=== PATIENT | female | born 1945 | race Caucasian/White ===

== ENCOUNTER 2024-11-02 11:00 | Outpatient (AMB) | payer MEDICARE, SELFPAY ==
--- NOTE | 2024-11-02 11:19 | A.OFFVIS_ITS ---
Intake Visit Reasons: Low back pain radiating to right leg, right hip pain Intake Note: Briseyda is a 79 year old female who presents with complaints of progressively worsening low back pain which radiates down her right leg. Her symptoms have gotten worse over the last year in spite of continued non operative treatments. Patient states that she did undergo low back surgery approximately 20 years ago. She has tried Tylenol and anti-inflammatory medicines which gave her minimal relief. She has also done physical therapy which aggravated her pain. The patient has difficulty walking even short distances because of her pain. At this point her low back pain is interfering with her activities of daily living and her ability to sleep well through the night. She has failed the last 6 weeks of conservative treatment. She also reports intermittent pain in her right groin. She has had cortisone injections given into her cervical spine in the past by [facility]. Allergies amoxicillin [From Augmentin] Allergy (Intermediate, Verified 11/02/24 11:20) Rash clavulanic acid [From Augmentin] Allergy (Intermediate, Verified 11/02/24 11:20) Rash morphine Allergy (Intermediate, Verified 11/02/24 11:20) Difficulty Breathing Medication List - Last Reconciled 11/02/24 by Wander Saenz MD aspirin (Adult Aspirin Regimen) 81 mg PO DAILY atorvastatin 10 mg PO DAILY metoprolol succinate ER 25 mg PO DAILY sertraline mg PO Physical Exam Const Other: Well-nourished well-developed very friendly female awake alert and oriented x3 in no acute distress Back/Spine/Pelvis Other: Low back examination shows right-sided paraspinal muscle tenderness, pain with range of motion, positive straight leg raise test on the right at 70 degrees, 4/5 strength with testing of her right hip flexors and knee extensors when compared to 5/5 strength on her left side Extrem Other: Right hip examination shows slightly decreased range of motion when compared to her left hip, pain with range of motion, no tenderness over her bursa Results Reviewed Results Reviewed: X-rays of the patient's lumbar spine show diffuse degenerative disc disease, no acute bony abnormalities X-rays of the patient's right hip show moderate to severe joint space narrowing, no acute bony abnormalities Assessment & Plan Assessment & Plan (1) Low back pain radiating to right lower extremity: Code(s): M54.50 - Low back pain, unspecified; M79.604 - Pain in right leg Plan Ms. Montes presents with intermittent right hip pain due to degenerative joint disease as well as progressively worsening low back pain which radiates down her right leg most likely due to lumbar stenosis versus a disc herniation. Thus, I will send the patient for a CT scan of her lumbar spine for further evaluation. She is not able to get an MRI because she has a pacemaker. If the patient does have significant stenosis in her lumbar spine I will refer her to the neurosurgery department here at [facility] for further evaluation. She will contact me prior to her CT scan should her symptoms worsen in any way. I spent 20 minutes in reviewing the patient's records and imaging studies, seeing the patient and documenting in the medical record. Orders: Orders XR hip RT min 2V Today M25.551 - Pain in right hip CT lumbar spine wo IV con Today M54.50 - Low back pain, unspecified, M79.604 - Pain in right leg XR hip LT 1V Today M25.552 - Pain in left hip Coding Level of Care Code New Pt Level 3 (34978) Complex EM visit Add On G2211 Diagnoses Low back pain radiating to right lower extremity M54.50; M79.604
== END 2024-11-02 11:53 | disposition home or self-care (01) ==
PROVIDERS: Visit Provider Orthopaedic Surgery
DX: M54.50 Low back pain, unspecified (principal); M79.604 Pain in right leg
CPT/HCPCS: 99203; G2211

== ENCOUNTER 2024-11-02 14:56 | Outpatient (REF) | payer MEDICARE, SELFPAY ==
--- NOTE | ~2024-11-02 | XR_ITS ---
EXAMINATION: XR HIP RIGHT CLINICAL INFORMATION: Pain in right hip M25.551. COMPARISON: None available TECHNIQUE: Two views of the right hip. FINDINGS: Severe right hip arthritis, marked joint space loss, sclerosis, osteophytes. No acute fracture or dislocation. Moderate left hip arthritis. SI joints and symphysis pubis are intact. Symphysis pubis degeneration. No suspicious soft tissue calcifications. Dextroconvex curvature and spondylosis in the visualized lower lumbar spine. Bones appear osteopenic. . XR/XR hip RT min 2V IMPRESSION: Severe right hip arthritis. Moderate left hip arthritis. Additional findings as above. Study is assigned/presented to me for interpretation on Dec 09, 2024 Electronically signed by: Oleg Nowak MD 12/09/2024 01:02 PM GREGORAI LOZADA
== END 2024-11-02 14:57 | disposition home or self-care (01) ==
LOC: HO.HOSX 14:56
PROVIDERS: Visit Provider Orthopaedic Surgery
DX: M25.551 Pain in right hip (principal)
CPT/HCPCS: 73502; 99202

== ENCOUNTER 2024-11-11 13:19 | Outpatient (REF) | payer MEDICARE, SELFPAY | END 2024-11-11 13:20 | disposition home or self-care (01) | LOC: HO.CT 13:19 | PROVIDERS: PCP Nurse Practitioner Family; Visit Provider Orthopaedic Surgery | DX: M54.50 Low back pain, unspecified (principal); M79.604 Pain in right leg | CPT/HCPCS: 72131 ==

== ENCOUNTER → 2024-11-11 13:24 | Outpatient (BNV) | payer MEDICARE, SELFPAY | PROVIDERS: PCP Nurse Practitioner Family; Visit Provider Radiology Diagnostic Radiology | DX: M47.895 Other spondylosis, thoracolumbar region (principal); M41.35 Thoracogenic scoliosis, thoracolumbar region; M43.16 Spondylolisthesis, lumbar region; M48.062 Spinal stenosis, lumbar region with neurogenic claudication | CPT/HCPCS: 72131 ==

== ENCOUNTER 2024-12-10 12:52 | Outpatient (AMB) | payer MEDICARE, SELFPAY ==
--- NOTE | 2024-12-10 12:58 | HO.SPINEOV ---
Vital Signs 12/10/24 13:02 Height 5 ft 2 in Weight 128 lb BMI 23.4 Intake Visit Reasons: lumbar stenosis Intake Note: Ms. Montes is here today c/o low back pain, difficulty walking. Devulcanizer Tender Required: No Allergies amoxicillin [From Augmentin] Allergy (Intermediate, Verified 12/10/24 13:03) Rash clavulanic acid [From Augmentin] Allergy (Intermediate, Verified 12/10/24 13:03) Rash morphine Allergy (Intermediate, Verified 12/10/24 13:03) Difficulty Breathing Physical Exam Vital Signs: BMI result Body Mass Index 23.4 Assessment & Plan Assessment & Plan (1) Lumbar stenosis: Code(s): M48.061 - Spinal stenosis, lumbar region without neurogenic claudication Category: Medical Plan Dear Dr Saenz, Thank you for referring Mrs Montes to our office today. She is a very nice 79-year-old female presents today for evaluation of right sided buttock pain, right groin pain, pain going down her lateral thigh into her lateral calf. The patient has a longstanding history of back pain going back 50 years. She has a history of scoliosis and has generally managed her spine with injections at the [facility] in-situ, PT and chiropractic. The back pain is a chronic situation which has more less been progressive but not disabling. What she has been dealing with now is to separate set of symptoms. The 1st set of symptoms began about 2 years ago and steadily getting worse, and she describes it as a right buttock pain that radiates into her anterior groin. It is generally worse in the morning and gets a little better as the day goes on. By the afternoon into the evening however this pain can be very uncomfortable and disabling. The 2nd pain is 1 that developed last year sometime around the spring into the summer and that 1 radiates from her buttock down to her lateral thigh into her lateral calf. There is no associated tingling numbness. Her leg will feel weak at times like it is going to give out. She had a previous foraminotomy done at [facility] a number of years ago. This current pain does not feel like the nerve pain she had at that time. She has had a few falls because of it. She has been seen at your office, evaluated for hip arthritis. Because of the pain shooting down the right leg a CT scan was done. The patient can not have an MRI because of a pacemaker. The CT scan showed stenosis the lumbar spine she came today for an evaluation. The pain in the right leg that goes down to the thigh and the calf is aggravated with standing and activity. The more she does on it generally the where she will be by the end of the day. In addition to the groin and buttock pain, this pain shooting down the leg is almost unbearable at this point. Thankfully if she lays down it will go away. Sleeping is no problem at this point. She takes Tylenol arthritis. She can not take anti-inflammatories because of history of peptic ulcer disease. PMH: She has a history of peptic ulcer disease, mitral valve repair and subsequent replacement. 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 History of a right total knee replacement, left ORIF to her ankle, previous lumbar foraminotomy, hysterectomy, high cholesterol, hypertension, IBS with constipation. Social hx: She does not smoke, drink use any recreational drugs Medications: Lipitor, metoprolol, sertraline, baby aspirin, Alertec, Colace, Tylenol, vitamin-D, probiotic, flaxseed oil, Metamucil and MiraLax Allergies: Augmentin, codeine morphine Physical exam: Patient is able to stand up out of a chair on her own, her gait is steady, she has no overt instability, she has a significant scoliotic curvature to palpation of her midline spine in a vertical position. She has a well-healed scar from her previous foraminotomy. Gross motor examination reveals significant limitations with pain with hip flexion but no focal motor deficits. Reflexes are normal in the bilateral lower extremities. She has guarding and tenderness with internal and external rotation of her hip. Imaging review: Lumbar CT done at [facility] shows a significant scoliotic curvature with significant facet arthropathy at multiple levels. Although it is difficult to state with exact certainty because of the limitations of CT but there does appear to be some crowding of the lateral recess on the right at L3-4 and L4-5. The L5 foramen appears widely patent. Impression: 79-year-old female with a history of scoliosis, previous L5 foraminotomy who has 2 separate issues going on currently. One is that she has significant hip pain and it looks like she has arthritis on her hip x-ray. This is being managed conservatively at this time. The 2nd pain which is nearly as bad as the hip is pain going down her buttock into her lateral thigh and into her lateral calf which I think is coming from the L5 nerve. The pain is aggravated with standing walking gets better when she sits down. The best position is lying flat. It is possible that the hip arthritis situation is aggravating the situation in the back and maybe causing some flare-up of the nerve root given the underlying stenosis and scoliosis. It is hard to tell which 1 might be making the other 1 worse, but I think it is worth getting an L5 TFE to see if we can localize best where this is coming from. I would like to see her back after the injection. She is known to the [facility] team so I will send her back to them. Thank you for allowing us to care for your patient. The total time spent with this visit with this patient was 45 minutes reviewing history, physical exam, lumbar imaging review, and implementation of treatment plan or further diagnostic testing Augie Szymanski MD,PhD [facility] Orders: Referrals Pain Management Referral M48.061 - Spinal stenosis, lumbar region without neurogenic claudication Coding Level of Care Code New Pt Level 4 (23116) Diagnoses Lumbar stenosis M48.061
[2024-12-10 13:02] VITALS: BMI 23.4
== END 2024-12-10 13:52 | disposition home or self-care (01) ==
PROVIDERS: PCP Nurse Practitioner Family; Visit Provider Physician Assistant
DX: M48.061 Spinal stenosis, lumbar region without neurogenic claudication (principal)
CPT/HCPCS: 99204

== ENCOUNTER → 2024-12-10 12:52 | Outpatient (BNVA) | payer MEDICARE, SELFPAY | PROVIDERS: PCP Nurse Practitioner Family; Visit Provider Physician Assistant | DX: M48.061 Spinal stenosis, lumbar region without neurogenic claudication (principal) | CPT/HCPCS: 99202 ==

== ENCOUNTER 2025-01-28 11:21 | Outpatient (AMB) | payer MEDICARE, SELFPAY ==
--- NOTE | 2025-01-28 11:36 | A.SPINEOV_ITS ---
Intake Visit Reasons: f/up injection Intake Note: Ms. Montes is here today to F/u after cortisone injections. Accessibility Lift Technician Required: No Allergies amoxicillin [From Augmentin] Allergy (Intermediate, Verified 12/10/24 13:03) Rash clavulanic acid [From Augmentin] Allergy (Intermediate, Verified 12/10/24 13:03) Rash morphine Allergy (Intermediate, Verified 12/10/24 13:03) Difficulty Breathing Assessment & Plan Assessment & Plan (1) Lumbar stenosis: Code(s): M48.061 - Spinal stenosis, lumbar region without neurogenic claudication Category: Medical Plan MRs Montes came back to the office for her follow up after undergoing right L5 TFE for her right sided leg pain. She did get some temporary relief from the injection with the pain going down her leg, but did not get relief from the anterior groin pain and hip pain. This suggests that she does indeed have 2 separate issues going on. One is the lumbar radiculopathy in the other is the hip arthritis. The patient is very focused on the hip at this time as it seems to be the main thing that is limiting her with her movement and her walking. Even standing for just short period of time gives her tremendous pain into her anterior groin. I reviewed all the imaging with Dr. Szymanski, including the CT scan of the lumbar spine and there is crowding at the L4-5 lateral recess. We suspect that most of the pain is coming from the hip as that seems to be the biggest pain generator, but if you think we should do a laminotomy 1st before considering a hip replacement, he would be willing to do that, but the patient would have to understand that it would not help the groin and hip pain. The patient would like to seek out the opinion of Dr. mercedes as you were no longer doing hip surgery just to get his thoughts on the matter. Total amount of time spent in this visit was 20 minutes in discussion of symptoms, lumbar CT imaging results and subsequent plan of care Augie Szymanski MD,PhD [facility] Coding Level of Care Code Est Pt Level 3 (84301) Diagnoses Lumbar stenosis M48.061
--- OUTSIDE RECORDS SUMMARY | 2025-01-28 13:12 | XMS_ITS | Clinical Summary ---
Author Organization [facility] [address] [facility] Address [address] [place] [address] Phone Care Team Providers Care Disbursement Clerk Name Role Phone Anna Buckley NP Primary Care Provider [phone] Allergies Active Allergy Reactions Criticality Noted Date Comments Amoxicillin-Pot Clavulanate 12/16/19 Codeine 12/16/2024 Morphine Anaphylaxis High 12/16/2024 Medications atorvastatin (LIPITOR) 10 mg tablet 12/04/2024 Active metoprolol succinate (TOPROL-XL) 25 mg 24 hr tablet 12/04/2024 Act wander sertraline (ZOLOFT) 50 mg tablet Take 1.5 tablets (75 mg total) by mouth 1 (one) time each day. 11/04/2024 Active Active Problems Problem Noted Date Diagnosed Date Pacemaker 12/16/2024 S/P mitral valve replacement 12/16/2024 202 2 Overview (12/16/2024): bovine Diverticulitis 12/16/2024 Gastric ulcer due to Helicobacter pylori, acute 12/16/2024 2005 Overview (12/16/2024): UGIB/H.pylori Fibromyalgia 12/16/2024 Irritable bowel syndrome with constipation 12/16 Assessment & Plan (12/16/2024 11:58 AM EST): Magnesium Citrate 1/2 bottle, then 2nd 1/2 an hour later Resume Metamucil daily, 2 softners bid, Miralax qod for the first week, then qd Osteoporosis 12/16/2024 C. difficile diarrhea 12/16/2024 2013 Encounters Date Type Department Care Team Description 12/16/2024 11:00 AM EST Office Visit Gastroenterology - [address] [place] [phone] Xena Jeffrey PA Abdominal fullness in left lower quadrant (Primary Dx); Irritable bowel syndrome with constipation; Colon cancer screening 12/16/2024 Telephone Gastroenterology - 299 [facility] [address] [facility] [address] [place] [phone] Akil Zazueta MD from Last 3 Months Surgical History Surgery Date Site/Laterality Comments APPENDECTOMY HYSTERECTOMY with BSO age 40 TOTAL KNEE ARTHROPLASTY COLONOSCOPY 12/25/2013 - 01/21/2014 tics (10 yr) ESOPHAGOGASTRODUODENOSCOPY 07/25/2005 - 08/23/2005 UGIB, ESOPHAGOGASTRODUODENOSCOPY 09/24/2005 - 10/23/2005 nearly healed , h.pylori + biopsy - Prevpak Social History Tobacco Use Types Packs/Day Years Used Date Smoking Tobacco: Never Assessed Comments Unknown Sex and Gender Information Value Date Recorded Sex Assigned at Not on file Legal Sex Female 3:15 AM EST Gender Identity Not on file Sexual Orientation Not on file Obstetrics History Plan of Treatment Upcoming Encounters Date Type Department Care Team (Late st Contact Info) Description 02/15/2025 8:00 AM EDT Hospital Encounter [facility] Endoscopy [address] [place] [phone] Akil Zazueta MD [address] [address] Health Maintenance Due Date Last Done Comments COVID-19 Vaccine ( season) 2024 10/09/2022, 03/11/2022, 03/11/2022, Additional history exists Cholesterol Screening (Lipid Panel) 08/31/2024 Depression Screening 08/31/2024 Falls Risk Assessment 08/31/2024 Hepatitis C Screening 08/31/2024 Medicare Annual Wellness Visit 08/31/2024 Social Influencers of Health Screening 08/31/2024 Hypertension/CHF/CAD Annual BMP Blood Test 12/17/2024 DTaP,Tdap,and Td Vaccines (2 - Td or Tdap) 11/06/2026 11/06/2016 Osteoporosis Screening (Bone Density Screening) 03/09/2031 03/09/2021, 01/29/2018 Pneumococcal Vaccine: 50+ Years Completed 09/26/2015, 09/23/2014 Zoster Vaccines Completed 07/10/2019, 04/0 01/2019, 01/06/2017 Influenza Vaccine Completed 12/06/2024, , 09/29/2020 RSV Immunization Patients 60+ Years Old Completed 12/06/2024 HIB Vaccines Aged Out No longer eligi ble based on patient's age to complete this topic HPV Vaccines Aged Out No longer eligi ble based on patient's age to complete this topic Hepatitis A Vaccines Aged Out No long er eligible based on patient's age to complete this topic Hepatitis B Vaccines Aged Out No long er eligible based on patient's age to complete this topic IPV Vaccines Aged Out No longer eligi ble based on patient's age to complete this topic MMR Vaccines Aged Out No longer eligi ble based on patient's age to complete this topic Meningococcal ACWY Vaccine Aged Out N o longer eligible based on patient's age to complete this topic Meningococcal B Vacine Aged Out No lo nger eligible based on patient's age to complete this topic RSV Immunization Patients Under 20 months Aged Out No longer eligible based on patient's age to complete this topic Varicella Vaccines Aged Out No longer eligible based on patient's age to complete this topic Procedures Procedure Name Priority Date/Time Associated Diagnosis Comments EXTERNAL ENDOSCOPY REPORT Routine 12/17/2024 9:39 AM EST [facility] DEXA AXIAL SKELETON Routine 03/09/2021 11:37 AM EDT Other specified disorders of bone density and structure, other site from Last 3 Months or Most Recently Relevant to Health Maintenance Results * External Endoscopy (12/17/2024 9:39 AM EST) Anatomical Region Laterality Modality Endoscopy us Historical Provider GI~PROCEDURE ORDERABLES F inal Result * [facility] DEXA AXIAL SKELETON (03/09/2021 11:37 AM EDT) Anatomical Region Laterality Modality Mammography 03/09/2021 10:2 4 AM EDT Narrative 03/09/2021 11:37 AM EDT [facility] Diagnostic Imaging Department [address] [place] [id number] Patient: ??BRISEYDA MONTES ?/Age/Sex: 1945 - Unit#: ??[id number] ? Location/Status: ??SPDIMAM/REG CLI ? Mnemonic/Ordering Site: ??MAMDEXAAX/SPMAM Ordering Physician: ??ANNA BUCKLEY NP Ricky Dexa Axial Skeleton - 03/09/211125 HISTORY: ??The patient is a 75-year-old postmenopausal female with clinical concern for metabolic bone disease. FINDINGS: ??Dual energy x-ray absorptiometry of the lumbar spine and femurs is performed. The mean bone mineral density at L1-L4 (with the exclusion of L3) is 1.031 gm/cm2 which is 88% of that of young normals and 108% of that of age matched controls. This yields a T-score of -1.2 and a Z-score of 0.6 which is diagnostic of osteopenia. The mean bone mineral density of the femurs bilaterally is 0.806 gm/cm2 which is 80% of that of young normals and 103% of that of age matched controls. ??This yields a T-score of -1.6 and a Z-score of 0.2 which is diagnostic of osteopenia.. ??The T-score of the right femoral neck is -2.0 and that of the left femoral neck is -1.9 which is diagnostic of osteopenia. IMPRESSION: 1. Osteopenia. ??There has been an increase of 1.5% in bone mineral density in the lumbar spine since the prior examination of 01/29/2018. ??There has been an increase of 1.1% in bone mineral density in the right femur and a decrease of 1.6% in bone mineral density in the left femur. 2. FRAX analysis yields a 10-year probability of major osteoporotic fracture of 20.7% and a 10-year probability of hip fracture of 5.2%. Code 89041 Dictating Physician: ??EVELINE THORPE MD Electronically Signed by: ??EVELINE THORPE MD Dic Date/Time: ??03/09/21 1135 Sign date/Time: ??03/09/21 1137 Procedure Note Eveline Thorpe MD - 11/12/2022 [facility] Diagnostic Imaging Department [address] [place] [address] Patient: BRISEYDA MONTES Alicia /Age/Sex: 1945 - 75 - F Unit#: [id number] [facility] Mnemonic[facility] Ordering Physician: ANNA BUCKLEY FRENCH BINDER Ricky Dexa Axial Skeleton - 03/09/21 - 1126 HISTORY: The patient is a 75-year-old postmenopausal female withclinical concern for metabolic bone disease. FINDINGS: Dual energy x-ray absorptiometry of the lumbar spine and femursis performed. The mean bone mineral density at L1-L4 (with the exclusion ofL3) is 1.031 gm/cm2 which is 88% of that of young normals and 108% of that ofage matched controls. This yields a T-score of -1.2 and a Z-score of 0.6 whichis diagnostic of osteopenia. The mean bone mineral density of the femurs bilaterally is 0.806 gm/pl8qgzss is 80% of that of young normals and 103% of that of age matched controls.This yields a T-score of -1.6 and a Z-score of 0.2 which is diagnostic of osteopenia.. The T-score of the right femoral neck is -2.0 and that ofthe left femoral neck is -1.9 which is diagnostic of osteopenia. IMPRESSION: 1. Osteopenia. There has been an increase of 1.5% in bone mineral densityin the lumbar spine since the prior examination of 01/29/2018. There has beenan increase of 1.1% in bone mineral density in the right femur and a decreaseof 1.6% in bone mineral density in the left femur. 2. FRAX analysis yields a 10-year probability of major osteoporoticfracture of 20.7% and a 10-year probability of hip fracture of 5.2%. Code 95723 Dictating Physician: EVELINE THORPE MD Electronically Signed by: EVELINE THORPE MD Dic Date/Time: 03/09/21 1135 Sign date/Time: 03/09/21 1137 Anna Buckley NP IM BI PROCEDURES Final Resul t from Last 3 Months or Most Recently Relevant to Health Maintenance Insurance MEDICARE [facility] Care Teams Disbursement Clerk Relationship Specialty Start Date End Date Anna Buckley NP [address] [facility] [place] [id number] PCP - General Internal Medicine 12/10/24
== END 2025-01-28 11:57 | disposition home or self-care (01) ==
PROVIDERS: PCP Nurse Practitioner Family; Visit Provider Physician Assistant
DX: M48.061 Spinal stenosis, lumbar region without neurogenic claudication (principal)
CPT/HCPCS: 99213

== ENCOUNTER → 2025-01-28 11:21 | Outpatient (BNVA) | payer MEDICARE, SELFPAY | PROVIDERS: PCP Nurse Practitioner Family; Visit Provider Physician Assistant | DX: M48.061 Spinal stenosis, lumbar region without neurogenic claudication (principal) | CPT/HCPCS: 99212 ==